=== PATIENT | female | born 2000 | race American Indian/Alaskan Native ===

== ENCOUNTER 2022-01-04 12:57 | Emergency (ER) | payer SELFPAY ==
--- NOTE | 2022-01-04 13:25 | Event Note ---
Date: 01/04/22 Medical screening examination note: 21-year-old female, who is 2, para 0, who has not had confirmatory outpatient ultrasound, who states that she is , presenting with nausea and vomiting. Obtain appropriate laboratory studies, ultrasound, detailed history and physical to be performed by myself, or oncoming ER provider Patient currently awake, protecting airway, moving course remedies, and hemodynamically stable Vital Signs 01/04/22 01/04/22 01/04/22 13:09 13:24 16:56 Temperature 98.8 F 97.7 F Pulse Rate 84 80 83 Respiratory 18 19 14 Rate Blood Pressure 119/69 106/50 [Left] O2 Sat by Pulse 99 100 98 Oximetry
[2022-01-04] MEDS ORDERED: D5W/0.45% NACL 1,000 ML IV SCH (14:00)
[2022-01-04] MEDS ORDERED: METOCLOPRAMIDE 10 MG/2 ML INJ IV NR (14:00)
--- NOTE | 2022-01-04 15:16 | Ultrasound Report ---
ULTRASOUND OBSTETRIC INDICATION: Cramping with nausea and vomiting. TECHNIQUE: Transabdominal. COMPARISON: None available. FINDINGS: GESTATIONAL SAC: Well-defined oval shape and intrauterine in location. YOLK SAC: No significant abnormality. EMBRYO/FETUS: No significant abnormality. - [place]-Rump Length = 0.51 cm = 6 weeks, 2 day(s). - Heart Rate = 129 beats per minute. ADNEXA: No significant abnormality. FREE FLUID: None. ADDITIONAL FINDINGS: A nabothian cyst is seen measuring up to 8.5 mm. IMPRESSION: 1. Single, living intrauterine with estimated sonographic age of 6 weeks, 2 day(s). 2. No significant abnormality. Signer Name: Mick Doe MD Signed: 01/04/2022 3:12 PM Workstation Name: [id number]
--- NOTE | 2022-01-04 15:26 | Emergency Department Report ---
ED General Adult HPI - General Chief complaint: Dizziness Stated complaint: , DIZZY, NAUSEA Time Seen by Provider: 01/04/22 13:39 Source: patient, EMS ( EMS documentation not available at time of chart dictation ), RN notes reviewed Mode of arrival: Stretcher Limitations: No Limitations - History of Present Illness Initial comments: The patient was evaluated in the emergency department for symptoms described in the history of present illness. He/she was evaluated in the context of the global COVID-19 pandemic, which necessitated consideration that the patient might be at risk for infection with the virus that causes COVID-19. Institution al protocols and algorithms that pertain to the evaluation of patients at risk for COVID-19 are in a state of rapid change based on information released by regulatory bodies including the CDC and federal and state organizations. These policies and algorithms were followed during the patient's care in the emergency department. Please note that these policies, procedures and recommendations changed on a rapid basis. This is a 21-year-old female, who is 2, para 0. She believes that she is 4 to 6 weeks but she is not certain. She presents to the department today with a complaint of nausea and vomiting and being . She reports a positive outpatient test at an urgent care center, but has not had a formal ultrasound. Her symptoms are much improved with fluids and antiemetics here in the emergency room. She makes no mention of additional injuries or com plaints. -: days(s) Severity scale (0 -10): 8 Consistency: now resolved Improves with: medication Worsens with: eating - Related Data Previous Rx's Medication Instructions Recorded Last Taken Type Doxylamine Succinate/Vit B6 1 each PO QHS PRN #30 tablet. 01/04/22 Unknown Rx [Raul Pinzon 10-10 mg Tablet] Fosfomycin Tromethamine [Monurol] 3 gm PO ONCE #1 packet 01/04/22 Unknown Rx Neisha Root [Neisha] 250 mg PO QID PRN #30 capsule 01/04/22 Unknown Rx Allergies Allergy/AdvReac Type Severity Reaction Status Date / Time Penicillins AdvReac Rash Verified 01/04/22 13:32 ED Review of Systems ROS: Stated complaint: , DIZZY, NAUSEA Other details as noted in HPI Constitutional: denies: fever Respiratory: denies: cough Cardiovascular: denies: chest pain Gastrointestinal: nausea Neurological: weakness ED Past Medical Hx - Past Medical History Previous Medical History?: No - Surgical History Past Surgical History?: No - Social History Smoking Status: Never Smoker - Medications Home Medications: Home Medications Medication Instructions Recorded Confirmed Last Taken Type Doxylamine Succinate/Vit B6 1 each PO QHS PRN #30 tablet. 01/04/22 Unknown Rx [Diclegis Dr 10-10 mg Tablet] Fosfomycin Tromethamine [Monurol] 3 gm PO ONCE #1 packet 01/04/22 Unknown Rx Neisha Root [Neisha] 250 mg PO QID PRN #30 capsule 01/04/22 Unknown Rx ED Physical Exam - General Limitations: No Limitations General appearance: alert, anxious, obese - Head Head exam: Present: atraumatic, normocephalic - Eye Eye exam: Present: normal appearance, EOMI - ENT ENT exam: Present: normal exam, normal orophraynx, mucous membranes moist, normal external ear exam - Neck Neck exam: Present: normal inspection, full ROM. Absent: tenderness, meningismus - Respiratory Respiratory exam: Present: normal lung sounds bilaterally. Absent: respiratory distress, wheezes, rales, rhonchi, stridor, decreased breath sounds - Cardiovascular Cardiovascular Exam: Present: regular rate, normal rhythm, normal heart sounds. Absent: bradycardia, tachycardia, irregular rhythm, systolic murmur, diastolic murmur, rubs, gallop - GI/Abdominal GI/Abdominal exam: Present: soft. Absent: distended, tenderness, guarding, rebound, rigid, pulsatile mass - Extremities Exam Extremities exam: Present: normal inspection, full ROM, other (2+ pulses noted in the bilateral upper and lower extremities. There is no palpable cord. negative Homans sign. Muscular compartments are soft. The pelvis is stable.). Absent: pedal edema, calf tenderness - Back Exam Back exam: Present: normal inspection. Absent: tenderness, CVA tenderness (R), CVA tenderness (L), paraspinal tenderness, vertebral tenderness - Neurological Exam Neurological exam: Present: alert, oriented X3, other (No facial droop. Tongue midline. Extraocular movements intact bilaterally. Facial sensation intact to light touch in V1, V2, V3 distribution bilaterally. 5 and a 5 strength in 4 extremities. Sensation intact to light touch in 4 extremities.). Absent: motor sensory deficit - Psychiatric Psychiatric exam: Present: normal affect, normal mood - Skin Skin exam: Present: warm, dry, intact, normal color. Absent: rash ED Course Vital Signs 01/04/22 01/04/22 01/04/22 13:09 13:24 16:56 Temperature 98.8 F 97.7 F Pulse Rate 84 80 83 Respiratory 18 19 14 Rate Blood Pressure 119/69 106/50 [Left] O2 Sat by Pulse 99 100 98 Oximetry - Reevaluation(s) Reevaluation #1: 01/04/22 15:25 Differential diagnosis, include not limited to: Nausea and vomiting in , electrolyte derangement, dehydration, hyperemesis Assessment and plan: 21-year-old female presenting with reported cramping, nausea and vomiting. She is clinically sober, afebrile, with reassuring vital signs, with no abdominal tenderness, rebound or guarding No active vomiting at this time. Ultrasound confirms IUP. Vital signs stable and unremarkable. EKG essentially unremarkable, laboratory studies pending 01/04/22 15:48 Lab reports that the CBC has been clotted off. They are going to send somebody by for a redraw 01/04/22 17:42 CBC unremarkable. Patient in no acute distress. Asking to be discharged. Urinalysis appreciated. Cover empirically with Keflex. Urine drug screen appreciated. Patient clinically sober. Counseled to abstain/avoid from consumption of marijuana, alcohol, tobacco, smoke products etc. Patient observed in this department for hours without clinical decompensation. She is suitable for discharge at this point time Urinalysis appreciated. Patient does not endorse any irritative or obstructive urinary symptoms. Asymptomatic bacteriuria in . Patient is unfor tunately allergic to penicillins. Given first trimester , start treatment with fosfomycin 01/04/22 17:49 01/04/22 17:57 Discussed all findings with patient. She articulates understanding. She is asking to be discharged. ED Medical Decision Making - Lab Data Result diagrams: 01/04/22 17:20 01/04/22 15:20 Vital Signs 01/04/22 01/04/22 13:09 13:24 Temperature 98.8 F 97.7 F Pulse Rate 84 80 Respiratory 18 19 Rate Blood Pressure 119/69 [Left] O2 Sat by Pulse 99 100 Oximetry Lab Results 01/04/22 01/04/22 01/04/22 Range/Units 13:53 13:53 15:20 WBC (4.5-11.0) K/mm3 RBC (3.65-5.03) M/mm3 Hgb (10.1-14.3) gm/dl Hct (30.3-42.9) % MCV (79-97) fl MCH (28-32) pg MCHC (30-34) % RDW (13.2-15.2) % Plt Count (140-440) K/mm3 Lymph % (Auto) (13.4-35.0) % [place] % (Auto) (0.0-7.3) % Eos % (Auto) (0.0-4.3) % Baso % (Auto) (0.0-1.8) % Lymph # (Auto) (1.2-5.4) K/mm3 [place] # (Auto) (0.0-0.8) K/mm3 Eos # (Auto) (0.0-0.4) K/mm3 Baso # (Auto) (0.0-0.1) K/mm3 Seg Neutrophils % (40.0-70.0) % Seg Neutrophils # (1.8-7.7) K/mm3 Sodium 134 L (137-145) mmol/L Potassium 4.3 (3.6-5.0) mmol/L Chloride 100.2 (98-107) mmol/L Carbon Dioxide 19 L (22-30) mmol/L Anion Gap 19 mmol/L BUN 8 (7-17) mg/dL Creatinine 0.7 (0.6-1.2) mg/dL Estimated GFR > 60 ml/min BUN/Creatinine Ratio 11 % Glucose 159 H (65-100) mg/dL Calcium 9.0 (8.4-10.2) mg/dL Total Bilirubin 0.40 (0.1-1.2) mg/dL AST 18 (5-40) units/L ALT 8 (7-56) units/L Alkaline Phosphatase 53 (35-129) units/L Total Protein 7.2 (6.3-8.2) g/dL Albumin 4.5 (3.9-5) g/dL Albumin/Globulin Ratio 1.7 % Urine Color Yellow (Yellow) Urine Turbidity Hazy (Clear) Specific [place] (Man) 1.010 (1.003-1.030) Ur Protein (Man) 3+ (Negative) mg/dL Ur Ketones (Man) 5 (Negative) Ur Nitrite (Man) Negative (Negative) Ur Reducing Substances Not Reportable Urine Bilirubin (Man) Negative (Negative) Urine Ictotest Not Reportable Leukocyte Esterase (Man) Negative (Negative) Urine WBC (Auto) 34.0 H (0.0-6.0) /HPF Urine RBC (Auto) 5.0 (0.0-6.0) /HPF U Epithel Cells (Auto) 7.0 (0-13.0) /HPF Urine Bacteria (Auto) 1+ (Negative) /HPF Urine RBC (Manual) 4+ (Negative) Urine Mucus 2+ /HPF Urine Opiates Screen Negative Urine Methadone Screen Negative Ur Barbiturates Screen Negative Ur Phencyclidine Scrn Negative Ur Amphetamines Screen Negative U Benzodiazepines Scrn Negative Urine Cocaine Screen Negative U Marijuana (THC) Screen Positive Drugs of Abuse Note Disclamer Plasma/Serum Alcohol (0-0.07) % 01/04/22 01/04/22 Range/Units 15:20 17:20 WBC 7.4 (4.5-11.0) K/mm3 RBC 4.61 (3.65-5.03) M/mm3 Hgb 12.4 (10.1-14.3) gm/dl Hct 38.3 (30.3-42.9) % MCV 83 (79-97) fl MCH 27 L (28-32) pg MCHC 32 (30-34) % RDW 13.9 (13.2-15.2) % Plt Count 308 (140-440) K/mm3 Lymph % (Auto) 11.6 L (13.4-35.0) % [place] % (Auto) 6.7 (0.0-7.3) % Eos % (Auto) 0.2 (0.0-4.3) % Baso % (Auto) 0.3 (0.0-1.8) % Lymph # (Auto) 0.9 L (1.2-5.4) K/mm3 [place] # (Auto) 0.5 (0.0-0.8) K/mm3 Eos # (Auto) 0.0 (0.0-0.4) K/mm3 Baso # (Auto) 0.0 (0.0-0.1) K/mm3 Seg Neutrophils % 81.2 H (40.0-70.0) % Seg Neutrophils # 6.0 (1.8-7.7) K/mm3 Sodium (137-145) mmol/L Potassium (3.6-5.0) mmol/L Chloride (98-107) mmol/L Carbon Dioxide (22-30) mmol/L Anion Gap mmol/L BUN (7-17) mg/dL Creatinine (0.6-1.2) mg/dL Estimated GFR ml/min BUN/Creatinine Ratio % Glucose (65-100) mg/dL Calcium (8.4-10.2) mg/dL Total Bilirubin (0.1-1.2) mg/dL AST (5-40) units/L ALT (7-56) units/L Alkaline Phosphatase (35-129) units/L Total Protein (6.3-8.2) g/dL Albumin (3.9-5) g/dL Albumin/Globulin Ratio % Urine Color (Yellow) Urine Turbidity (Clear) Specific [place] (Man) (1.003-1.030) Ur Protein (Man) (Negative) mg/dL Ur Ketones (Man) (Negative) Ur Nitrite (Man) (Negative) Ur Reducing Substances Urine Bilirubin (Man) (Negative) Urine Ictotest Leukocyte Esterase (Man) (Negative) Urine WBC (Auto) (0.0-6.0) /HPF Urine RBC (Auto) (0.0-6.0) /HPF U Epithel Cells (Auto) (0-13.0) /HPF Urine Bacteria (Auto) (Negative) /HPF Urine RBC (Manual) (Negative) Urine Mucus /HPF Urine Opiates Screen Urine Methadone Screen Ur Barbiturates Screen Ur Phencyclidine Scrn Ur Amphetamines Screen U Benzodiazepines Scrn Urine Cocaine Screen U Marijuana (THC) Screen Drugs of Abuse Note Plasma/Serum Alcohol < 0.01 (0-0.07) % - EKG Data -: EKG Interpreted by [place] EKG shows normal: sinus rhythm Rate: normal - EKG Data When compared to previous EKG there are: previous EKG unavailable 01/04/22 15:25 The EKG is interpreted at 13: 40 Sinus rhythm, with a rate of 90 bpm. Normal axis, normal P wave axis, high left ventricular voltage, intervals within normal limits, EKG, not a STEMI. No prior for comparison - Radiology Data Radiology results: pending, report reviewed, image reviewed ULTRASOUND OBSTETRIC INDICATION: Cramping with nausea and vomiting. TECHNIQUE: Transabdominal. COMPARISON: None available. FINDINGS: GESTATIONAL SAC: Well- defined oval shape and intrauterine in location. YOLK SAC: No significant abnormality. EMBRYO/FETUS: No significant abnormality. - [place]-Rump Length = 0.51 cm = 6 weeks, 2 day(s). - Heart Rate = 129 beats per minute. ADNEXA: No significant abnormality. FREE FLUID: None. ADDITIONAL FINDINGS: A nabothian cyst is seen measuring up to 8.5 mm. IMPRESSION: 1. Single, living intrauterine with estimated sonographic age of 6 weeks, 2 day(s). 2. No significant abnormality. Signer Name: Mick Doe MD Signed: 01/04/2022 2:12 PM Workstation Name: [id number] Critical care attestation.: If time is entered above; I have spent that time in minutes in the direct care of this critically ill patient, excluding procedure time. ED Disposition Clinical Impression: Nausea and vomiting during , Bacteriuria Disposition: HOME / SELF CARE / HOMELESS Is pt being admited?: No Does the pt Need Aspirin: No Condition: Good Instructions: Hyperemesis Gravidarum Additional Instructions: Advance diet as tolerated, starting with a gentle diet, bread, rice, apples and toast. Avoid consumption of alcohol, tobacco and smoke products. Please take the multivitamin as directed, nausea medication as directed. Avoid secondhand and primary exposure/consumption to marijuana. Follow-up as soon as possible with an outpatient [facility]PAIR MAINTENA[facility]CE SUPERVISOR doctor to initiate outpatient care. Please return to the emergency room right away with new pain, worsened pain, migration of pain, projectile vomiting, change in mental status, confusion, inability tolerate liquid feeds, new, worsened or different symptoms not present on the initial emergency room evaluation Prescriptions: Doxylamine Succinate/Vit B6 [Raul Pinzon 10-10 mg Tablet] 1 each PO QHS PRN #30 tablet.dr PRN Reason: Nausea Neisha Root [Neisha] 250 mg PO QID PRN #30 capsule PRN Reason: Nausea Fosfomycin Tromethamine [Monurol] 3 gm PO ONCE #1 packet Referrals: [facility] [Provider Group] - 3-5 Days [facility] [Provider Group] - 3-5 Days [facility] [Provider Group] - 3-5 Days Forms: Work/School Release Form(ED)
[2022-01-04 15:33] LABS: Amphetamine Screen,Urine Negative; Benzodiazepines Screen,Urine Negative; Cocaine Screen,Urine Negative; Methadone Screen,Urine Negative; Opiate Screen,Urine Negative
[2022-01-04 15:47] LABS: Bacteria,Urine 1+ /HPF (Negative); Mucus,Urine 2+ /HPF
[2022-01-04 15:49] LABS: Cannabinoid Screen,Urine Positive
[2022-01-04 15:50] LABS: Color,Urine Yellow (Yellow)
[2022-01-04 16:11] LABS: Alanine Aminotransferase 8 units/L (7-56); Albumin 4.5 g/dL (3.9-5); Blood Urea Nitrogen 8 mg/dL (7-17); Hemolysis Index 70
[2022-01-04 16:12] LABS: BUN/Creatinine Ratio 11
[2022-01-04 17:24] VITALS: BP 106/50
[2022-01-04 17:28] LABS: Basophils % (Auto) 0.3 % (0.0-1.8); Eosinophils % (Auto) 0.2 % (0.0-4.3); Hematocrit 38.3 % (30.3-42.9); Hemoglobin 12.4 gm/dl (10.1-14.3); Lymphocytes # (Auto) 0.9 K/mm3 (1.2-5.4); Lymphocytes % (Auto) 11.6 % (13.4-35.0); Mean Corpuscular HGB Conc 32 % (30-34); Mean Corpuscular Volume 83 fl (79-97); Monocytes # (Auto) 0.5 K/mm3 (0.0-0.8); Monocytes % (Auto) 6.7 % (0.0-7.3); Platelet Count 308 K/mm3 (140-440); Red Blood Count 4.61 M/mm3 (3.65-5.03); Red Cell Distribution Width 13.9 % (13.2-15.2)
[2022-01-04] MEDS ORDERED: ONDANSETRON 4 MG/2 ML INJ IV ONE (17:56)
--- NOTE | 2022-01-06 10:19 | Electrocardiograph Report ---
[facility] Test Date: 2022-01-04 Test Time: 13:38:38 Pat Name: FRANSISCA CLIFFORD Department: Room: Gender: F Cable Installer Repairer: DANAE : 2000 Requested By: CHRIS NARAYANAN Order Number: [id number] Reading MD: Judah Vergara Measurements Intervals [place] Rate: 77 P: 43 CA: 167 QRS: 37 QRSD: 85 T: 2 QT: 336 QTc: 381 Interpretive Statements Sinus rhythm Borderline ST elevation, lateral leads No previous ECG available for comparison Electronically Signed On 01-06-2022 10:19:13 EDT by Judah Vergara
== END 2022-01-04 17:50 | disposition home or self-care (01) ==
LOC: ED 12:57
DX: O21.9 Vomiting of pregnancy, unspecified (principal); R82.71 Bacteriuria; Z3A.01 Less than 8 weeks gestation of pregnancy; Z79.899 Other long term (current) drug therapy; Z88.0 Allergy status to penicillin
CPT/HCPCS: 36415; 76801; 80053; 80307; 81001; 84702; 85025; 87086; 93005; 96374; 99284; J2405; J2765; J7070; 80320; G0480